=== PATIENT | female | born 1960 | race Caucasian/White ===

== ENCOUNTER → 2017-04-10 | Outpatient (CLI) | payer BC ==
--- NOTE | 2017-04-13 11:53 | MM ---
Reason for exam: screening (asymptomatic). Last mammogram was performed 1 year and 1 month ago. History: Patient is postmenopausal and has history of other cancer at age 46. Benign core biopsy of the left breast, October 07, 1995. Physical Findings: A clinical breast exam by your physician is recommended on an annual basis and results should be correlated with mammographic findings. MG Screening Mammo w CAD Bilateral CC and MLO view(s) were taken. Prior study comparison: March 03, 2016, bilateral MG screening mammo w CAD. March 02, 2015, bilateral MG screening mammo w CAD. There are scattered fibroglandular densities. There is a stable left retroareolar mass back to 2010. No suspicious abnormality. No significant changes when compared with prior studies. ASSESSMENT: Benign, BI-RAD 2 RECOMMENDATION: Routine screening mammogram of both breasts in 1 year.
== END | disposition home or self-care (01) ==
LOC: RADMAMWWP 15:21
PROVIDERS: ATTEND Internal Medicine Hematology & Oncology
DX: Z12.31 Encounter for screening mammogram for malignant neoplasm of breast (principal)
CPT/HCPCS: 77067

== ENCOUNTER 2018-04-11 19:46 | Emergency (ER) | payer BC ==
[2018-04-11] MEDS ORDERED: DIPH,PERTUS(ACELL)TETVAC-LF 0.5 ML VIAL IM ONE (19:58)
[2018-04-11 20:00] VITALS: RESP 16; TEMP 97.1
[2018-04-11] MEDS ORDERED: LIDOCAINE 1% INJ 10MG/ML (20 ML MDV) SQ STA (20:00)
--- NOTE | 2018-04-11 20:05 | ED ---
General Adult HPI - General Stated complaint: Thumb lac Source: RN notes reviewed, old records reviewed - History of Present Illness Initial comments: 49-year-old female patient past medical history of lymphoma, splenectomy presents to ED after sustaining a laceration to the base of her left thumb. Patient was cleaning a wine glass when it broke and cut her left thumb. Patient denies any notable pieces of glass in wound. Patient denies any other injuries. Patient does not know date of last tetanus. Patient has full range of motion of thumb. Systemic: Pt denies fatigue, myalgia, fever/chills, rash. Pt denies weakness, night sweats, weight loss. Neuro: Pt denies headache, visual disturbances, syncope or pre-syncope. HEENT: Pt denies ocular discharge or irritation, otalgia, rhinorrhea, pharyngitis or notable lymphadenopathy. Cardiopulmonary: Pt denies chest pain, SOB, heart palpitations, dyspnea on exertion. Abdominal/GI: Pt denies abdominal pain, n/v/d. : Pt denies dysuria, burning w/ urination, frequency/urgency. Denies new onset urinary or bowel incontinence. MSK: Pt denies myalgia, loss of strength or function in extremities. Neuro: Pt denies new onset weakness, paresthesias. - Related Data Home Medications Medication Instructions Recorded Confirmed Calcium Carbonate/Vitamin D3 2 tab PO DAILY 11/02/13 01/05/16 [Caltrate 600 + D Tablet] Cholecalciferol [Vitamin D3] 1,000 unit PO DAILY 11/02/13 01/05/16 Multivitamins, Thera [Multivitamin] 1 tab PO DAILY 11/02/13 01/05/16 Omeprazole [PriLOSEC] 40 mg PO DAILY 11/02/13 01/05/16 Vitamin A 8,000 unit PO DAILY 11/02/13 01/05/16 ALPRAZolam [Xanax] 0.25 mg PO DAILY PRN 01/18/14 01/05/16 Metoprolol Succinate 50 mg PO DAILY 01/18/14 01/05/16 Zinc 50 mg PO DAILY 02/15/14 01/05/16 Losartan-Hctz 50-12.5 mg [Hyzaar 1 each PO DAILY 01/05/16 01/05/16 50-12.5] Previous Rx's Medication Instructions Recorded Hydrocodone/Acetaminophen [[place] 1 - 2 each PO Q6HR PRN #60 tab 01/06/14 5-325] Cephalexin [Keflex] 500 mg PO Q12HR 3 Days #6 cap 04/11/18 Allergies Allergy/AdvReac Type Severity Reaction Status Date / Time codeine Allergy Wheezing Verified 04/11/18 19:56 Iodinated Contrast- Oral and Allergy Rash/Hives Verified 04/11/18 19:56 IV Dye [Iodinated Contrast Media - IV Dye] morphine Allergy Rash/Hives Verified 04/11/18 19:56 Review of Systems ROS Statement: Those systems with pertinent positive or pertinent negative responses have been documented in the HPI. ROS Other: All systems not noted in ROS Statement are negative. Past Medical History Past Medical History: Cancer, GERD/Reflux, Hypertension Additional Past Medical History / Comment(s): lymphoma 2006, INCISIONAL WOUND ABDOMEN, PACKED WITH SALINE DRESSING History of Any Multi-Drug Resistant Organisms: None Reported Past Surgical History: Bariatric Surgery, Breast Surgery, Section, Cholecystectomy, Hernia Repair, Tonsillectomy, Uterine Ablation Additional Past Surgical History / Comment(s): gastric sleeve 03/18/12, splenectomy 2006, RK on eyes, D&C, EGD, Lt breast biopsy,laparoscopy, panniculectomy 12/02/13, wound dehiscence s/p panniculectomy-debridement and sutures done 01/06/14 Past Anesthesia/Blood Transfusion Reactions: No Reported Reaction Additional Past Anesthesia/Blood Transfusion Reaction / Comment(s): STATES UNSURE IF HAD PONV WITH LAST SX Past Psychological History: No Psychological Hx Reported Smoking Status: Former smoker Past Alcohol Use History: Occasional Additional Past Alcohol Use History / Comment(s): glass of wine at night Past Drug Use History: None Reported - Past Family History Brother(s) Family Medical History: Cancer General Exam - General Exam Comments Initial Comments: Constitutional: NAD, AOX3, Pt has pleasant affect. HEENT: NC/AT, trachea midline, neck supple, no lymphadenopathy. Posterior pharynx non erythematous, without exudates. External ears appear normal, without discharge. Mucous membranes moist. Eyes PERRLA, EOM intact. There is no scleral icterus. No pallor noted. Cardiopulmonary: RRR, no murmurs, rubs or gallops, no JVD noted. Lungs CTAB in anterior and posterior garr[place]. No peripheral edema. Abdominal exam: Abdomen soft and non-distended. Abdomen non-tender to palpation in all 4 quadrants. Bowel sounds active in LLQ. No hepatosplenomegaly. No ecchymosis Neuro: CN II-XII grossly intact. No nuchal rigidity. MSK: Approximately 2cm laceration at dorsal aspect of MCP joint of 1st digit. Pt has full ROM of 1st digit of L hand, flexion/extension, abduction/adduction, rotation. Wound explored, no foreign body, ligamentous or osseus involvment. Pt neurovascularly intact after suture placement. No posterior calf tenderness bilaterally, homans sign negative bilaterally. Posterior tibialis and radial pulse +2 bilaterally. Sensation intact in upper and lower extremities. Full active ROM in upper and lower extremities, 5/5 stregnth. Course Vital Signs 04/11/18 04/11/18 19:56 20:51 Temperature 97.1 F L Pulse Rate 78 75 Respiratory 16 16 Rate Blood Pressure 167/101 147/87 O2 Sat by Pulse 94 L 96 Oximetry Medical Decision Making - Medical Decision Making 49-year-old female patient past medical history of lymphoma, splenectomy presents to ED after sustaining a laceration to the base of her left thumb. Patient was cleaning a wine glass when it broke and cut her left thumb. Patient denies any notable pieces of glass in wound. Patient denies any other injuries. Physical exam displayed: Approximately 2cm laceration at dorsal aspect of MCP joint of 1st digit. Pt has full ROM of 1st digit of L hand, flexion/extension, abduction/adduction, rotation. Wound explored, no foreign body, ligamentous or osseus involvment. Plain film did not display any foreign body. 4 simple interrupted sutures placed. Pt neurovascularly intact after suture placement. Pt rx 3 days of keflex for infection prophylaxis. Pt educated extensively about s/sx of infection. Pt to to return to ED if any s/sx of infection develop, any new symptoms or if condition worsens in anyway. Pt to return to ED in 7-10 days for suture removal. Pt to f/u with PCP in 1-2 days. Pt tetanus updated. Case discussed with Dr Cordoba. Disposition Clinical Impression: Laceration Disposition: HOME SELF-CARE Condition: Good Instructions: Care For Your Stitches (ED), Laceration (DC) Additional Instructions: Patient to adhere to previously discussed treatment plan and will take medication(s) as directed. Patient to follow up with PCP in 1-2 days. Patient to return to ED if symptoms do not improve. Prescriptions: Cephalexin [Keflex] 500 mg PO Q12HR 3 Days #6 cap Is patient prescribed a controlled substance at d/c from ED?: No Referrals: Daniel Campbell MD [Primary Care Provider] - 1-2 days Time of Disposition: 20:57
--- NOTE | 2018-04-11 20:29 | XR ---
EXAMINATION TYPE: XR hand complete LT DATE OF EXAM: 04/11/2018 COMPARISON: NONE HISTORY: Pain left thumb TECHNIQUE: 3 views FINDINGS: I see no fracture nor dislocation. Thumb appears intact. There is mild spurring at the firs t carpometacarpal joint. There are no erosions. IMPRESSION: No acute abnormality of the left hand. I see no sign of radiopaque foreign body.
[2018-04-11 20:52] VITALS: BP 147/87; PULSE 75
== END 2018-04-11 21:10 | disposition home or self-care (01) ==
LOC: EC 19:46
DX: S61.012A Laceration without foreign body of left thumb without damage to nail, initial encounter (principal); Z23 Encounter for immunization; K21.9 Gastro-esophageal reflux disease without esophagitis; I10 Essential (primary) hypertension; Z79.899 Other long term (current) drug therapy; Z88.5 Allergy status to narcotic agent; Z91.041 Radiographic dye allergy status; Z85.72 Personal history of non-Hodgkin lymphomas; Z87.891 Personal history of nicotine dependence; Z98.84 Bariatric surgery status; Z90.81 Acquired absence of spleen; W25.XXXA Contact with sharp glass, initial encounter; Y93.G1 Activity, food preparation and clean up
CPT/HCPCS: 73130; 90715; 99283; 90471; 12001; J2001

== ENCOUNTER → 2018-05-28 | Outpatient (CLI) | payer BC ==
--- NOTE | 2018-05-31 10:23 | MM ---
Reason for exam: screening (asymptomatic). Last mammogram was performed 1 year and 2 months ago. History: Patient is postmenopausal and has history of other cancer at age 46. Benign core biopsy of the left breast, October 07, 1995. Physical Findings: A clinical breast exam by your physician is recommended on an annual basis and results should be correlated with mammographic findings. MG Screening Mammo w CAD Bilateral CC and MLO view(s) were taken. Prior study comparison: April 10, 2017, bilateral MG screening mammo w CAD. March 03, 2016, bilateral MG screening mammo w CAD. There are scattered fibroglandular densities. There is no discrete abnormality. ASSESSMENT: Negative, BI-RAD 1 RECOMMENDATION: Routine screening mammogram of both breasts in 1 year.
== END | disposition home or self-care (01) ==
LOC: RADMAMWWP 12:31
PROVIDERS: ATTEND Internal Medicine Hematology & Oncology
DX: Z12.31 Encounter for screening mammogram for malignant neoplasm of breast (principal)
CPT/HCPCS: 77067

== ENCOUNTER → 2018-07-28 | Outpatient (CLI) | payer BC ==
--- NOTE | 2018-07-28 17:47 | CT ---
EXAMINATION TYPE: CT ChestAbdPelvis w con DATE OF EXAM: 07/28/2018 INDICATION: Lymphoma, Observe for mets COMPARISON: 02/05/2015 CT DLP: 2080.90 mGycm CONTRAST: Performed with Oral Contrast and with IV Contrast, patient injected with 100 ml mL of Isovue 300. TECHNIQUE: Axial images at 5 mm thick sections. Reconstructed images in the coronal plane. Delayed images through the kidneys. FINDINGS: CT CHEST: Portion of the thyroid visualized is normal. There is a 0.4 cm nodule within the right middle lobe. This was present previously. Series 4 image 29 . A subtle peripheral densities within the lingula measuring 0.4 cm. Series 4 image 33. This was pres ent previously. A pleural-based nodule is in the right middle lobe measuring 0.6 cm. Series 4 image 33. This is sligh tly larger than the comparison. No enlarged mediastinal or hilar adenopathy is evident. The ascending aorta diameter at the level of the main pulmonary artery is 3.3 cm. The main pulmonary artery diameter at the bifurcation is 2.[address] ABDOMEN: Lymphadenopathy: A few shoddy lymph nodes are in the periaortic region. No enlarged lymph adenopathy is evident. Portal region appears normal. No enlarged hilar adenopathy is evident. There i s a 1.2 cm lymph node within the pretracheal space. This was present previously and appears stable no suspicious axillary adenopathy is evident. Small left inguinal lymph node measuring 0.7 cm is presen t. Liver: There is moderate fatty infiltration liver. Spleen: Surgically absent Pancreas: Normal Adrenal glands: The adrenal glands are normal. Gallbladder: Surgically absent. Kidneys: No masses are evident. No hydronephrosis is present. No cysts are present. Delayed images were obtained through the kidneys, which remain unremarkable. Aorta: Vascular calcification is within the aorta. Inferior vena cava: Normal. CT PELVIS: Loops of bowel within the abdomen and pelvis are normal. There are loops of bowel which are incom pletely distended or lack oral contrast limiting their evaluation. Appendix: Not visualized. No dilated tubular structure inflammatory changes are evident. Urinary bladder: Normal. Genitourinary structures: Uterus and adnexal regions appear within normal limits. Osseous structures: No suspicious lytic or sclerotic lesions. There is a small sclerotic lesion along the left ischio. Series 7 image 64. Degenerative disc changes are within the lower thoracic spine. IMPRESSIONS: 1. No suspicious change in adenopathy is present. There is a stable 1.2 cm pretracheal lymph node. Ad ditional lymphadenopathy is small and not enlarged by CT criteria. 2. Moderate fatty infiltration to the liver.
== END | disposition home or self-care (01) ==
LOC: RADCTMAIN 11:48
PROVIDERS: ATTEND Internal Medicine Hematology & Oncology
DX: C83.80 Other non-follicular lymphoma, unspecified site (principal); K76.0 Fatty (change of) liver, not elsewhere classified
CPT/HCPCS: 71260; 74177; Q9967

== ENCOUNTER → 2019-05-10 | Outpatient (CLI) | payer BC ==
[2019-05-10 12:38] LABS: HCT 46.4 % (34.0-46.0); HGB 14.9 gm/dL (11.4-16.0); MCH 29.1 pg (25.0-35.0); MCHC 32.2 g/dL (31.0-37.0); MCV 90.3 fL (80.0-100.0); Mean Platelet Volume 7.6; Platelet Count 440 k/uL (150-450); RBC 5.14 m/uL (3.80-5.40); RDW 13.6 % (11.5-15.5); WBC 12.5 k/uL (3.8-10.6)
[2019-05-10 12:43] LABS: Partial Thromboplastin Time 23.8 sec (22.0-30.0); Prothrombin Time 9.9 sec (9.0-12.0)
[2019-05-10 18:54] LABS: Ferritin 230.9 ng/mL (10.0-291.0)
[2019-05-10 19:21] LABS: % Iron Saturation 18.71 (12.00-45.00); African American GFR (CKD) 115.6 (60.0-200.0); Albumin 4.6 g/dL (3.80-4.90); Anion Gap 8.8 mmol/L (4.00-12.00); Carbon Dioxide 33.2 mmol/L (21.6-31.8); Chol/HDL Ratio 2.95; Folate, Serum 22.2 ng/mL; Globulin 2.3 g/dL (1.6-3.3); LDL Cholesterol,Calculated 96.6 mg/dL (0.0-131.0); Magnesium 2.3 mg/dL (1.5-2.4); Non-African American GFR(CKD) 99.8 (60.0-200.0); Phosphorus 3.4 mg/dL (2.4-5.1); Potassium 4.3 mmol/L (3.5-5.5); Total Bilirubin 0.3 mg/dL (0.3-1.2); Total Protein 6.9 g/dL (6.2-8.2); VLDL Calculation 26.4 mg/dL (5.00-40.00)
[2019-05-10 21:09] LABS: Hemoglobin A1C 6.7 % (4.0-6.0)
[2019-05-11 14:37] LABS: Zinc, Serum 120 ug/dL (60-130)
[2019-05-12 07:15] LABS: Vitamin A 44 ug/dL (38-106)
[2019-05-12 08:21] LABS: Vit B1(Thiamine) 99 ug/L (38-122)
== END | disposition home or self-care (01) ==
LOC: LABWHC1 11:36
PROVIDERS: ATTEND Surgery Plastic and Reconstructive Surgery
DX: E21.1 Secondary hyperparathyroidism, not elsewhere classified (principal); E89.1 Postprocedural hypoinsulinemia; D50.8 Other iron deficiency anemias; K90.89 Other intestinal malabsorption; E44.0 Moderate protein-calorie malnutrition; E55.9 Vitamin D deficiency, unspecified; K74.1 Hepatic sclerosis; N19 Unspecified kidney failure; K50.90 Crohn's disease, unspecified, without complications; E66.01 Morbid (severe) obesity due to excess calories; Z51.81 Encounter for therapeutic drug level monitoring
CPT/HCPCS: 36415; 80053; 80061; 82306; 82525; 82607; 82728; 82746; 83036; 83540; 83550; 83735; 83970; 84100; 84134; 84255; 84425; 84443; 84590; 84630; 85027; 85610; 85730

== ENCOUNTER → 2019-05-30 | Outpatient (CLI) | payer BC ==
--- NOTE | 2019-05-31 10:12 | MM ---
Reason for exam: screening (asymptomatic). Last mammogram was performed 1 year ago. History: Patient is postmenopausal and has history of other cancer at age 46. Benign core biopsy of the left breast, October 07, 1995. Physical Findings: A clinical breast exam by your physician is recommended on an annual basis and results should be correlated with mammographic findings. MG Screening Mammo w CAD Bilateral CC and MLO view(s) were taken. Prior study comparison: May 28, 2018, bilateral MG screening mammo w CAD. April 10, 2017, bilateral MG screening mammo w CAD. There are scattered fibroglandular densities. No suspicious abnormality. No significant changes when compared with prior studies. ASSESSMENT: Negative, BI-RAD 1 RECOMMENDATION: Routine screening mammogram of both breasts in 1 year.
== END | disposition home or self-care (01) ==
LOC: RADMAMWWP 09:19
PROVIDERS: ATTEND Internal Medicine Hematology & Oncology
DX: Z12.31 Encounter for screening mammogram for malignant neoplasm of breast (principal)
CPT/HCPCS: 77067

== ENCOUNTER → 2020-06-04 | Outpatient (CLI) | payer BC ==
--- NOTE | 2020-06-05 11:10 | MM ---
Reason for exam: screening (asymptomatic). Last mammogram was performed 1 year ago. History: Patient is postmenopausal and has history of other cancer at age 46. Benign core biopsy of the left breast, October 07, 1995. Physical Findings: A clinical breast exam by your physician is recommended on an annual basis and results should be correlated with mammographic findings. MG Screening Mammo w CAD Bilateral CC and MLO view(s) were taken. Prior study comparison: May 30, 2019, bilateral MG screening mammo w CAD. May 28, 2018, bilateral MG screening mammo w CAD. No significant changes when compared with prior studies. ASSESSMENT: Negative, BI-RAD 1 RECOMMENDATION: Routine screening mammogram of both breasts in 1 year.
== END ==
LOC: RADMAMWWP 09:49
PROVIDERS: ATTEND Internal Medicine Hematology & Oncology
DX: Z12.31 Encounter for screening mammogram for malignant neoplasm of breast (principal); Z78.0 Asymptomatic menopausal state
CPT/HCPCS: 77067

== ENCOUNTER → 2021-03-11 | Outpatient (CLI) | payer BC ==
[2021-03-11 15:22] LABS: African American GFR (CKD) >90 (>60 ml/min/1.73 sqM); Blood Urea Nitrogen 20 mg/dL (7-17); Non-African American GFR(CKD) >90 (>60 ml/min/1.73 sqM)
--- NOTE | 2021-03-12 09:16 | CT ---
EXAMINATION TYPE: CT ChestAbdPelvis w con DATE OF EXAM: 03/11/2021 COMPARISON: Most recent CT July 28, 2018 and older studies. HISTORY: Observe for mets, hx non-hodgkins lymphoma. PT having increased dyspnea, SOB. CT DLP: 2319.40 mGycm. Automated Exposure Control for Dose Reduction was Utilized. CONTRAST: CT scan of the thorax, abdomen and pelvis is performed with oral and with IV Contrast, patient inject ed with 100 mL of Isovue 300. FINDINGS: LUNGS: Stable 6 x 4 mm subpleural nodule right middle lobe on axial image 32 is grossly unchanged fro m prior studies. Smaller 3 mm nodule superior to this axial image 28 is grossly stable. No new great er than 5 mm pulmonary nodules bilaterally. There is no pleural effusion or pneumothorax seen. The tracheobronchial tree is patent. MEDIASTINUM: There are no new greater than 1 cm hilar or mediastinal lymph nodes. Prominent but subce ntimeter paracarinal lymph node on axial image 20 and right hilar lymph node axial image 28 are both unchanged from prior studies. No cardiomegaly or pericardial effusion is seen. OTHER: No suspicious new greater than 1 cm axillary adenopathy is seen. LIVER/GB: Cholecystectomy clips are redemonstrated. Liver is diffusely low dense consistent with fat ty infiltration PANCREAS: No significant abnormality is seen. SPLEEN: Spleen is nonvisualized redemonstrated surgically absent. ADRENALS: No significant abnormality is seen. KIDNEYS: No significant abnormality is seen. BOWEL: No suspicious small or large bowel dilatation is seen. There is redemonstration of surgical changes from gastric sleeve procedure. Oral contrast reaches the sigmoid colon level on current stud y. GENITAL ORGANS: Anteverted uterus redemonstrated. Slight fundal prominence raising concern for underl celi fibroids again seen. LYMPH NODES: No new greater than 1cm abdominal or pelvic lymph nodes are appreciated. Stable prominen t but subcentimeter bilateral groin lymph nodes. OSSEOUS STRUCTURES: Disc space narrowing with sclerosis at T11-T12 level is redemonstrated. OTHER: Mesh type material overlying the ventral wall with linear density is redemonstrated in the mid line of the upper abdomen. No recurrent hernia defect is evident in the mesh. IMPRESSION: No new mass or adenopathy is seen to suggest neoplastic recurrence. No new suspicious ac [place] findings identified.
== END | disposition home or self-care (01) ==
LOC: RADCTMAIN 14:31
PROVIDERS: ATTEND Internal Medicine Hematology & Oncology
DX: C83.80 Other non-follicular lymphoma, unspecified site (principal); R06.00 Dyspnea, unspecified; R06.02 Shortness of breath
CPT/HCPCS: 82565; 84520; 71260; 74177; 36415; Q9967

== ENCOUNTER → 2021-06-05 | Outpatient (CLI) | payer BC ==
--- NOTE | 2021-06-06 10:51 | MM ---
Reason for exam: screening (asymptomatic). Last mammogram was performed 1 year ago. History: Patient is postmenopausal and has history of other cancer at age 46. Benign core biopsy of the left breast, October 07, 1995. Physical Findings: A clinical breast exam by your physician is recommended on an annual basis and results should be correlated with mammographic findings. MG 3D Screening Mammo W/Cad Bilateral CC and MLO view(s) were taken. Prior study comparison: June 04, 2020, bilateral MG screening mammo w CAD. May 30, 2019, bilateral MG screening mammo w CAD. There are scattered fibroglandular densities. There is no discrete abnormality. No significant changes when compared with prior studies. ASSESSMENT: Negative, BI-RAD 1 RECOMMENDATION: Routine screening mammogram of both breasts in 1 year.
== END | disposition home or self-care (01) ==
LOC: RADMAMWWP 12:40
PROVIDERS: ATTEND Internal Medicine Hematology & Oncology
DX: Z12.31 Encounter for screening mammogram for malignant neoplasm of breast (principal); Z78.0 Asymptomatic menopausal state
CPT/HCPCS: 77063; 77067

== ENCOUNTER → 2021-10-01 | Outpatient (CLI) | payer OTHER ==
[2021-10-01 15:40] LABS: ALT 103 U/L (8-44); AST 80 U/L (13-35); African American GFR (CKD) 111.7 (60.0-200.0); Albumin 4.2 g/dL (3.8-4.9); Albumin/Globulin Ratio 1.43 (1.60-3.17); Alkaline Phosphatase 130 U/L (41-126); BUN/Creat Ratio 26.72 Ratio (12.00-20.00); Blood Urea Nitrogen 16.7 mg/dL (9.0-27.0); Calcium 10.5 mg/dL (8.7-10.3); Carbon Dioxide 30.5 mmol/L (20.0-27.5); Chloride 98 mmol/L (96-109); Chol/HDL Ratio 3.79 Ratio; Globulin 2.9 g/dL (1.6-3.3); Glucose 189 mg/dL (70-110); LDL Cholesterol,Calculated 113.7 mg/dL (0.0-131.0); Non-African American GFR(CKD) 96.4 (60.0-200.0); Potassium 4.4 mmol/L (3.5-5.5); Sodium 142 mmol/L (135-145); Total Protein 7.1 g/dL (6.2-8.2)
[2021-10-01 18:51] LABS: Microalbumin Creatinine Ratio <30 mg/g Creat (0-30)
== END | disposition home or self-care (01) ==
LOC: LABWHC1 10:32
PROVIDERS: ATTEND Nurse Practitioner
DX: E11.9 Type 2 diabetes mellitus without complications (principal)
CPT/HCPCS: 36415; 80053; 80061; 82043; 82570; 83036

== ENCOUNTER → 2022-02-26 | Outpatient (CLI) | payer OTHER ==
[2022-02-26 16:09] LABS: ALT 92 U/L (8-44); AST 87 U/L (13-35); African American GFR (CKD) 110.3 (60.0-200.0); Albumin 4.1 g/dL (3.8-4.9); Alkaline Phosphatase 137 U/L (41-126); BUN/Creat Ratio 21.73 Ratio (12.00-20.00); Blood Urea Nitrogen 14.1 mg/dL (9.0-27.0); Calcium 10.9 mg/dL (8.7-10.3); Carbon Dioxide 30.8 mmol/L (20.0-27.5); Chloride 96 mmol/L (96-109); Chol/HDL Ratio 3.44 Ratio; Globulin 3.7 g/dL (1.6-3.3); Glucose 161 mg/dL (70-110); LDL Cholesterol,Calculated 110.8 mg/dL (0.0-131.0); Non-African American GFR(CKD) 95.2 (60.0-200.0); Potassium 4.3 mmol/L (3.5-5.5); Sodium 139 mmol/L (135-145); Total Protein 7.8 g/dL (6.2-8.2)
== END | disposition home or self-care (01) ==
LOC: LABWHC1 09:38
PROVIDERS: ATTEND Nurse Practitioner
DX: I10 Essential (primary) hypertension (principal); E11.9 Type 2 diabetes mellitus without complications
CPT/HCPCS: 36415; 80053; 80061; 82043; 82570; 82607; 83036

== ENCOUNTER → 2022-06-30 | Outpatient (CLI) | payer OTHER ==
--- NOTE | 2022-06-30 12:10 | XR ---
EXAMINATION TYPE: XR hand complete bilateral DATE OF EXAM: 06/30/2022 CLINICAL HISTORY: Rheumatoid arthritis. Bilateral hand pain. TECHNIQUE: Frontal, lateral and oblique images of the bilateral hands are obtained. COMPARISON: Left hand x-ray April 11, 2018. FINDINGS: There is no acute fracture or dislocation in either hand. There is mild to moderate narrowi ng and mild spurring throughout the PIP and DIP joints of the phalanges. There is relative sparing of the MCP joints. Right fifth finger shows more moderate to severe narrowing with incomplete expansion . There is moderate to severe narrowing and spurring at the base of the first metacarpal bilaterally, left greater than right, seen on current study with some interval progression from 2019 left hand ra diographs. Incomplete extension of the left fifth finger is also redemonstrated. Mild to moderate sof t tissue swelling of the PIP joints more prominent in the right hand versus the left hand is noted. IMPRESSION: As above. Relative sparing of the MCP joints with argue against a inflammatory etiology s uch as rheumatoid arthritis.
--- NOTE | 2022-06-30 12:15 | XR ---
EXAMINATION TYPE: XR cervical spine comp DATE OF EXAM: 06/30/2022 TECHNIQUE: Frontal, oblique, swimmers, and open mouth view of the cervical spine are obtained. HISTORY: [id number], [id number], [id number] neck pain. COMPARISON: None FINDINGS: The cervical spine is visualized in its entirety from C1 thru the top of T1 level, it is s atisfactory in alignment without evidence of acute fracture or dislocation. The pre-vertebral soft t issue appears within normal limits. The C1-C2 articulation is within normal limits on the open mouth view. Vertebral body heights and disc space heights are maintained. There are multilevel uncoverteb ral facet degenerative changes contributing to multilevel neural foraminal narrowing greater on the r ight. Overlying soft tissue is unremarkable. IMPRESSION: As above. Consider MRI follow-up which is more sensitive.
[2022-06-30 19:31] LABS: ALT 117 U/L (8-44); AST 100 U/L (13-35); African American GFR (CKD) 107.6 (60.0-200.0); Albumin 4.4 g/dL (3.8-4.9); Albumin/Globulin Ratio 1.22 (1.60-3.17); Alkaline Phosphatase 155 U/L (41-126); BUN/Creat Ratio 22.57 Ratio (12.00-20.00); Blood Urea Nitrogen 15.8 mg/dL (9.0-27.0); Calcium 11.2 mg/dL (8.7-10.3); Carbon Dioxide 28.5 mmol/L (20.0-27.5); Chloride 93 mmol/L (96-109); Chol/HDL Ratio 3.67 Ratio; Globulin 3.6 g/dL (1.6-3.3); Glucose 203 mg/dL (70-110); LDL Cholesterol,Calculated 121.3 mg/dL (0.0-131.0); Non-African American GFR(CKD) 92.9 (60.0-200.0); Potassium 4.1 mmol/L (3.5-5.5); Rheumatoid Factor, Qnt <10 IU/mL (0-15); Sodium 136 mmol/L (135-145)
[2022-06-30 20:44] LABS: Microalbumin Creatinine Ratio <30 mg/g Creat (0-30)
== END | disposition home or self-care (01) ==
LOC: LABWHC1 11:12
PROVIDERS: ATTEND Nurse Practitioner
DX: I10 Essential (primary) hypertension (principal); E11.9 Type 2 diabetes mellitus without complications; Z82.61 Family history of arthritis; M79.641 Pain in right hand; M79.642 Pain in left hand
CPT/HCPCS: 36415; 72050; 80053; 80061; 82043; 82570; 82607; 83036; 86038; 86431

== ENCOUNTER 2022-07-15 08:07 | Day surgery (SDC) | payer OTHER ==
[2022-07-14 11:09] VITALS: BMI 35.2
[~2022-07-15 08:07] MED LIST: LACTATED RINGERS 1,000 ML IV SCH; LIDOCAINE 1% (10MG/ML) FOR IV START INTRADERMA PRN
[2022-07-15] MEDS ORDERED: LACTATED RINGERS 1,000 ML IV ONE ×2 (08:45→09:28)
[2022-07-15 08:49] VITALS: TEMP 97.1
[2022-07-15 08:54] LABS: Glucose,Whole Blood 139 mg/dL (70-110)
[2022-07-15] MEDS ORDERED: PROPOFOL 10 MG/ML 20 ML VIAL IV ONE (09:06)
--- NOTE | 2022-07-15 09:26 | P.PCN ---
Date of Procedure: 07/15/22 Procedure(s) Performed: BRIEF HISTORY: Patient is a 61-year-old pleasant white female scheduled for an elective colonoscopy as a part of evaluation of chronic diarrhea for the last 2 years duration. PROCEDURE PERFORMED: Colonoscopy with random biopsy. PREOPERATIVE DIAGNOSIS: Chronic diarrhea of 2 years duration. IV sedation per Anesthesia. PROCEDURE: After informed consent was obtained, the patient, was brought into the endoscopy unit. IV sedation was administered by Anesthesia under continuous monitoring. Digital rectal examination was normal. Initially the Olympus CF-160 flexible video colonoscope was then inserted in the rectum, gradually advanced into the cecum without any difficulty. Careful examination was performed as the scope was gradually being withdrawn. Ileocecal valve and the appendiceal orifice were visualized and appeared normal. Prep was excellent. Mucosa of the cecum, a scending colon, transverse colon, descending colon, sigmoid colon, and rectum appeared normal. Biopsies were done from ascending and descending colon to rule out microscopic/collagenous colitis. Retroflexion was performed in the rectum and no lesions were seen. The patient tolerated the procedure well. IMPRESSION: Normal-appearing colon from rectum to cecum with no evidence of colitis or colorectal neoplasia . RECOMMENDATIONS: Findings of this examination were discussed with the patient as well as a family. She was advised to follow with the biopsy results and use [id number] Imodium as needed for the chronic diarrhea. Recommend to have a repeat screening colonoscopy in 10 years..
[2022-07-15 09:44] VITALS: BP 136/90; PULSE 75; RESP 17
== END 2022-07-15 10:05 | disposition home or self-care (01) ==
LOC: ORWHC2ENDO 08:07
PROVIDERS: ATTEND Internal Medicine Gastroenterology
DX: K63.89 Other specified diseases of intestine (principal); K52.9 Noninfective gastroenteritis and colitis, unspecified; I10 Essential (primary) hypertension; J45.909 Unspecified asthma, uncomplicated; E11.9 Type 2 diabetes mellitus without complications; Z88.5 Allergy status to narcotic agent; Z91.041 Radiographic dye allergy status; Z79.84 Long term (current) use of oral hypoglycemic drugs; Z79.899 Other long term (current) drug therapy; Z85.79 Personal history of other malignant neoplasms of lymphoid, hematopoietic and related tissues
CPT/HCPCS: 88305; 45380; J2704

== ENCOUNTER → 2022-07-23 | Outpatient (CLI) | payer OTHER ==
--- NOTE | 2022-07-23 23:15 | MR ---
EXAMINATION TYPE: MR cervical spine wo con DATE OF EXAM: 07/23/2022 INDICATION: Patient age:Female; 61 years old; Reason for study: R93.7, M48.02. Neck pain COMPARISON: Radiograph 06/30/2022. TECHNIQUE: Multi planar, multi sequence imaging was performed utilizing: T1-weighted, T2-weighted, an d turbo inversion recovery imaging of the cervical spine. IV Contrast: none FINDINGS: Alignment: The cervical vertebral bodies have preserved heights. Alignment is within normal limits gi marilin patient positioning. Bones: Scattered degeneration changes throughout the spine are mild. Mild osteophyte formation is pre sent. Cord: The spinal cord is unremarkable with regards to their signal intensity and morphology. Discs: Multilevel disc desiccation is present. C2-C3: A disc eccentric right osteophyte complex is present which minimally narrows the ventral subar achnoid space. Bilateral facet and uncovertebral joint arthropathy are present with moderate right and mild left neural foraminal stenosis. C3-C4: No significant disc pathology. The spinal canal is patent. Bilateral facet and uncovertebral joint arthropathy are present with moderate right and mild left neural foraminal stenosis. C4-C5: No significant disc pathology. The spinal canal is patent. Bilateral facet and uncovertebral joint arthropathy are present with moderate bilateral neural foraminal stenosis. C5-C6: A disc osteophyte complex is present with mild spinal canal stenosis. Bilateral facet and unc overtebral joint arthropathy are present with moderate bilateral neural foraminal stenosis. C6-C7: No significant disc pathology. The spinal canal is patent. No neural foraminal stenosis. C7-T1: No significant disc pathology. The spinal canal is patent. No neural foraminal stenosis. IMPRESSION: 1. No evidence for disc herniation or significant spinal canal stenosis. 2. Multilevel disc degeneration with associated osteoarthritic changes with multilevel moderate neura l foraminal stenosis throughout the spine as described above.
== END | disposition home or self-care (01) ==
LOC: RADMRIMAIN 12:09
PROVIDERS: ATTEND Nurse Practitioner
DX: M50.122 Cervical disc disorder at C5-C6 level with radiculopathy (principal); M47.22 Other spondylosis with radiculopathy, cervical region; M48.02 Spinal stenosis, cervical region; M99.72 Connective tissue and disc stenosis of intervertebral foramina of thoracic region; R93.7 Abnormal findings on diagnostic imaging of other parts of musculoskeletal system
CPT/HCPCS: 72141

== ENCOUNTER → 2022-08-18 | Outpatient (CLI) | payer OTHER ==
[2022-08-18 11:25] VITALS: BP 134/84; PULSE 95; RESP 18; TEMP 97.7
--- NOTE | 2022-08-18 13:33 | P.PAINPG ---
PQRS Measure Charge Sheet Comment: HISTORY OF PRESENT ILLNESS: 62 yr old female w at side as a referral from Dr Lynn presents today w severe and chronic neck pain secondary to DDD, occipital neuralgia and cervicogenic CAROLINA for evaluation. Pt states pain level is provoked at 6 /10 in intensity, constant, localized in the upper neck, achy in character w shooting pain towards the head. Pain is provoked by hyperextension, flexion. Pain is alleviated by PT x 3 wks which she is currently in, chiropractic treatment x 1 session in Apr 2022, heat, ice, topical, use of a TENS unit, repositioning and rest. PMH: Lymphoma (2006), GERD, HTN PSH: Gastric Sleeve (2011), L Breast Biopsy, Section, Cholecystectomy, Splenectomy (2006), Hernia Repair, Tonsillectomy, Uterine Ablation, RK on Eyes, D &C, Panniculectomy w Debridement (2013) SH: Glass of wine nightly, Former tobacco user, No illicit drug use FH: Bro- [place] All: See list Meds: See list REVIEW OF ORGAN SYSTEMS: CONSTITUTIONAL: No fevers or chills. No recent weight loss. NEUROLOGICAL: + numbness and tingling along the distal extremities. No seizure disorders or headaches. MUSCULOSKELETAL: + pain PSYCHIATRIC: Denies current depression or suicidal thoughts. Physical Examinations : Constitutional : Cooperative , not in acute distress . Neurologic : Cranial nerve II to XII intact. No focal neurological deficits. Psychiatric : alert & oriented x 3. Matching mood & appropriate affect. Judgment & insight intact. Musculoskeletal : Cervical Spine +BL ABDIRASHID TTP Motor strength in the deltoid and biceps: Normal right side. Normal Left side Motor strength biceps and the wrist extensors: Normal right side . Normal left side Motor strength in the triceps muscle: Normal right side. Normal left side Deep tendon reflexes: Normal at the biceps. Normal at Brachioradialis. Normal at triceps Vertebral body tenderness to deep palpation over Cervical facet loading test: positive bilaterally Spurling test: positive bilaterally Neck distraction test: positive bilaterally Gonzales sign: positive bilaterally Lumbar spine Motor strength lower extremities ,thigh and legs 5/5 Right side , 5/5 Left side Deep tendon reflexes : Normal Knee Jerk. Normal Ankle Jerk Vertebral body tenderness over Lumbar facet Loading Test: positive Right / positive Left Range of motion of the lumbar spine Flexion 30 degrees, extension 10 degrees Straight Leg Raise test: Left/ Right positive at degree Suman test: positive right / positive left. Severe tenderness over the Sacroiliac joint on the Right / Left sides Gaenslen test: positive bilaterally Seated flexion test: positive bilaterally. Sacral spine : Severe tenderness over the Sacroiliac joint: right side / left side Range of motion: Flexion of the lumbar spine <60 degrees Range of motion: Extension of the lumbar spine <20 degrees Gaenslen's Test positive Pancho's Test positive Suman test: positive right side / left side Thigh Thrust Test Sacral Thrust Test Imaging: MRI non contrast of the cervical spine from 07/23/22 reviewed Assessment/ Plan : Occipital Neuralgia, Cervicogenic [place] Recommendation of BL ABDIRASHID Injections. May need a series for optimal pain relief. Risks, benefits of procedure discussed and patient verbalized understanding. Admits to aspirin or anti- coagulant use or medical history of diabetes. Protocol for discontinuation/ continuation of medications jaiden procedure discussed. All questions answered. I have spent greater than 30 minutes on patient care today. Dr Dos Santos was available by phone for the evaluation of this patient. The time was used to review the medical records including relevant urine studies and Prescription history (MAPs), review of the available imaging, evaluation and examination of the patient, coordination of care with the medical staff and if applicable referring physicians, as well as creation of the medical record - Pain Location Bilateral Lower Neck Non-Pharmacological Interventions: Chiropractic Treatment, Heat, Ice, Physical Therapy, TENS Unit Pharmacological Interventions: Topical Medication PQRS Narrative: Smoking Status Former smoker Home Medications: Ambulatory Orders Cholecalciferol [Vitamin D3] 1,000 unit PO DAILY 11/02/13 Multivitamins, Thera [Multivitamin] 1 tab PO DAILY 11/02/13 Omeprazole [PriLOSEC] 40 mg PO DAILY 11/02/13 Vitamin A 8,000 unit PO DAILY 11/02/13 Zinc 50 mg PO DAILY 02/15/14 Escitalopram [Lexapro] 10 mg PO DAILY 07/14/22 L.acidoph,Paracasei, B.lactis [Probiotic] 1 each PO DAILY 07/14/22 Losartan Potassium [Cozaar] 100 mg PO DAILY 07/14/22 Metoprolol Tartrate [Lopressor] 50 mg PO DAILY 07/14/22 Tirzepatide [Mounjaro] 2.5 mg SQ Q7D 07/14/22 hydroCHLOROthiazide 25 mg PO DAILY 07/14/22 metFORMIN HCL 750 mg PO BID 07/14/22 Controlled Substance Measures - Controlled Substance Measures Is patient prescribed a controlled substance at discharge?: No
== END ==
LOC: PNWHC3 09:11
PROVIDERS: ATTEND Specialist
DX: M50.30 Other cervical disc degeneration, unspecified cervical region (principal); R93.7 Abnormal findings on diagnostic imaging of other parts of musculoskeletal system; G44.86 Cervicogenic headache; M54.81 Occipital neuralgia; K21.9 Gastro-esophageal reflux disease without esophagitis; I10 Essential (primary) hypertension; Z88.5 Allergy status to narcotic agent; Z91.041 Radiographic dye allergy status; Z87.891 Personal history of nicotine dependence
CPT/HCPCS: 99211

== ENCOUNTER 2022-09-09 06:21 | Day surgery (SDC) | payer OTHER ==
[2022-09-05 15:28] VITALS: BMI 34.3
[2022-09-09] MEDS ORDERED: LIDOCAINE 1% (10MG/ML) FOR IV START INTRADERMA PRN (06:37)
[2022-09-09 06:43] VITALS: RESP 16; TEMP 97.1
[2022-09-09] MEDS ORDERED: LACTATED RINGERS 1,000 ML IV SCH (06:45)
[2022-09-09 06:48] LABS: Glucose,Whole Blood 131 mg/dL (70-110)
[2022-09-09] MEDS ORDERED: methylPREDNISolone ACETATE 40 MG/ML 1 ML VIAL ONE (07:23)
[2022-09-09] MEDS ORDERED: fentaNYL (PF) 50 MCG/ML 2 ML AMP ONE (07:23)
[2022-09-09] MEDS ORDERED: ROPIVACAINE 5 MG/ML 20 ML AMPULE ONE (07:23)
[2022-09-09] MEDS ORDERED: MIDAZOLAM 2 MG/2 ML VIAL ONE (07:23)
--- NOTE | 2022-09-09 07:31 | P.PCN ---
Date of Procedure: 09/09/22 Procedure(s) Performed: Preoperative diagnoses= 1- Greater occipital neuralgia. 2-cervical degenerative disc disease. 3-cervical spondylosis with cervical facet arthropathy Postoperative diagnoses= 1-greater occipital neuralgia. 2-cervical degenerative disc disease. 3-cervical spondylosis with cervical facet arthropathy Procedure= Bilateral Greater occipital nerve block. Anesthesia= moderate sedation with Versed 1 mg and fentanyl 50 micrograms Sedation start time : 722 . Sedation end time : 726 . Estimated blood loss=minimal. Procedure indication= the patient had a history of severe chronic neck pain ,and headache, diagnosed with occipital neuralgia exam was positive for severe tenderness over the occipital nerve bilaterally, she will be a good candidate occipital nerve block, patient failed conservative management Procedure description= the patient was seen and identified in the preoperative holding area, risks and benefits and alternative of the procedure and possible complications discussed with the patient, and he agreed with the preceding, patient signed the consent, an IV was started, and vital signs were monitored and were stable throughout the procedure, patient was placed in the sitting position or table and the neck area was prepped and draped with a sterile fashion, vital signs were closely monitored during the procedure, 25-gauge needle advanced 1 inch lateral to the occipital protuberance on the right side, at the location of the right occipital nerve , then after negative aspiration for heme and CSF and there was no paresthesia during the injection, 6 ml of Robivacaine 0.5% and 20 mg of Depo-Medrol injected after negative aspiration, the needle removed, and the entire same procedure was repeated for the left Greater occipital nerve. Patient tolerated the procedure well without any complication, The patient returned to supine position after the back was cleaned and a Band- Aid applied, the patient transported to recovery room in stable condition and he was monitored for 30 minutes before he was discharged home and then patient was reexamined before going home and patient was discharged in stable condition and patient will follow up with the pain clinic in a few weeks.
[2022-09-09 07:39] VITALS: PULSE 74
[2022-09-09 07:56] VITALS: BP 114/77
== END 2022-09-09 07:56 | disposition home or self-care (01) ==
LOC: ORPAIN 06:21
PROVIDERS: ATTEND Specialist
DX: M54.81 Occipital neuralgia (principal); M50.30 Other cervical disc degeneration, unspecified cervical region; M47.812 Spondylosis without myelopathy or radiculopathy, cervical region
CPT/HCPCS: 64405; J2250; J1030; J3010; J2795

== ENCOUNTER → 2022-09-29 | Outpatient (CLI) | payer OTHER ==
[2022-09-29 09:09] VITALS: BP 130/64; PULSE 81; RESP 18; TEMP 97.9
--- NOTE | 2022-09-29 14:20 | P.PAINPG ---
PQRS Measure Charge Sheet Comment: A 62 yr old female with a history of severe and chronic neck pain secondary to cervical DDD and spondylosis with facet arthropathy without myelopathy presents today for evaluation s/p BL ABDIRASHID injection. Pt states she experienced 90 % pain relief x 1 1/2 wks s/p procedure. Pain level is provoked at 6 /10 in intensity, constant, localized in the upper cervical spine, sharp in character w shooting towards the top of head, R> L. Pain is provoked by hyperextension. Pain is alleviated with PT x 6-8 wks in August 2022, chiropractic treatment x 1 time, heat > ice, medications, topical, repositioning and rest. Interventional pain procedures completed include BL ABDIRASHID injection Patient is currently on Ibu, Icy Hot Patient denies any side effects of the medication(s), denies excessive drowsiness or sleepiness, denies suicidal ideation and reports that the current pain medication is helping to control the pain and improve activities of daily living. Patient denies any motor or sensory deficits. Patient denies any fever or night sweats, denies any change in the bowel movements or urination. Physical Examination: -Constitutional: Cooperative. Not in acute distress . - Neurologic: Cranial nerve II to XII intact. No focal neurological deficits. - Psychatric: Alert & oriented x 3. Matching mood & appropriate affect. Judgment and insight intact. - Musculoskeletal: Cervical spine: Muscle bulk/ tone/ strength in the bilateral upper extremities normal Vertebral body tenderness to palpation over C6 Spurling test positive Distraction test positive over C6, C7 Facet loading test positive TTP Thoracic spine Muscle bulk / tone/ strength in the bilateral paraspinal muscles normal Vertebral body tender to palpation over Facet loading test positive TTP Lumbar spine: Motor bulk/ tone/ strength lower extremities , thigh and legs : 5/5 Deep tendon reflexes : Normal Knee Jerk. Normal Ankle Jerk . Vertebral body tenderness to palpation over Lumbar Facet Loading Test positive Straight Leg Raise: positive at 30 degrees right side/ left side Gaenslen's Test positive Sacral spine : Severe tenderness over the Sacroiliac joint: right side / left side Range of motion: Flexion of the lumbar spine <60 degrees Range of motion: Extension of the lumbar spine <20 degrees Gaenslen's Test positive R / L Suman test: positive right side / left side Thigh Thrust Test positive R / L Sacral Thrust Test positive R/ L Assessment and plan: Chronic neck pain secondary to cervical DDD, spondylosis with facet arthropathy without myelopathy Recommendation of KELSEY C6-C7. May need a series fo injections for optimal pain relief. Risks, benefits of procedure discussed and pt verbalized understanding. Admits to anticoagulant use or medical history of diabetes. Protocol for discontinuation/ continuation of medications jaiden procedure discussed. Minimal anesthesia provided, if clinically indicated, consisting of Versed and Fentanyl. All questions answered. I have spent less than 30 minutes on patient care today. Dr Dos Santos was available by phone for the evaluation of this patient. The time was used to review the medical records including relevant urine studies and Prescription history (MAPs), review of the available imaging, evaluation and examination of the patient, coordination of care with the medical staff and if applicable referring physicians, as well as creation of the medical record PQRS Narrative: Smoking Status Former smoker Hx Alcohol Use (MH) Yes: DAILY WINE Home Medications: Ambulatory Orders Cholecalciferol [Vitamin D3] 1,000 unit PO DAILY 11/02/13 Multivitamins, Thera [Multivitamin] 1 tab PO DAILY 11/02/13 Omeprazole [PriLOSEC] 40 mg PO DAILY 11/02/13 Vitamin A 8,000 unit PO DAILY 11/02/13 Zinc 50 mg PO DAILY 02/15/14 Escitalopram [Lexapro] 10 mg PO DAILY 07/14/22 L.acidoph,Paracasei, B.lactis [Probiotic] 1 each PO DAILY 07/14/22 Losartan Potassium [Cozaar] 100 mg PO DAILY 07/14/22 Metoprolol Tartrate [Lopressor] 50 mg PO DAILY 07/14/22 Tirzepatide [Mounjaro] 2.5 mg SQ MO 07/14/22 hydroCHLOROthiazide 25 mg PO DAILY 07/14/22 metFORMIN HCL 750 mg PO BID 07/14/22 Controlled Substance Measures - Controlled Substance Measures Is patient prescribed a controlled substance at discharge?: No
== END ==
LOC: PNWHC3 07:50
PROVIDERS: ATTEND Specialist
DX: M50.323 Other cervical disc degeneration at C6-C7 level (principal); M47.812 Spondylosis without myelopathy or radiculopathy, cervical region; G89.29 Other chronic pain; Z87.891 Personal history of nicotine dependence; Z88.5 Allergy status to narcotic agent; Z91.041 Radiographic dye allergy status
CPT/HCPCS: 99211

== ENCOUNTER → 2023-03-16 | Outpatient (CLI) | payer OTHER ==
[2023-03-16 16:18] LABS: ALT 67 U/L (8-44); AST 49 U/L (13-35); Albumin 4.1 g/dL (3.8-4.9); Albumin/Globulin Ratio 1.41 Ratio (1.60-3.17); Alkaline Phosphatase 123 U/L (41-126); Calcium 10.3 mg/dL (8.7-10.3); Carbon Dioxide 29.3 mmol/L (21.6-31.8); Chloride 99 mmol/L (96-109); Chol/HDL Ratio 3.63 Ratio; Globulin 2.9 g/dL (1.6-3.3); Glucose 160 mg/dL (70-110); LDL Cholesterol,Calculated 109.4 mg/dL (0.0-131.0); Potassium 4.4 mmol/L (3.5-5.5); Sodium 141 mmol/L (135-145); Total Bilirubin 0.4 mg/dL (0.3-1.2); VLDL Calculation 18.76 mg/dL (5.00-40.00)
== END | disposition home or self-care (01) ==
LOC: LABWHC1 10:09
PROVIDERS: ATTEND Nurse Practitioner
DX: Z00.00 Encounter for general adult medical examination without abnormal findings (principal); I10 Essential (primary) hypertension; E11.9 Type 2 diabetes mellitus without complications; K21.9 Gastro-esophageal reflux disease without esophagitis; Z98.890 Other specified postprocedural states
CPT/HCPCS: 36415; 80053; 80061; 82043; 82306; 82570; 82607; 83036

== ENCOUNTER → 2023-06-23 | Outpatient (CLI) | payer OTHER ==
--- NOTE | 2023-06-25 08:11 | MM ---
Reason for Exam: Screening (asymptomatic). Last screening mammogram was performed 12 month(s) ago. Patient History: Menarche at age 14. First Full-Term at age 20. Postmenopausal. Patient has history of breast feeding. 10/07/1995, Benign Core Biopsy on the left side. Risk Values: Tessie 5 year model risk: 1.5%. NCI Lifetime model risk: 6.5%. Prior Study Comparison: 06/06/2022 Bilateral MG screening mammo w CAD, [facility]. 06/10/2022 Right MG 3D work up w/cad RT, [facility]. 12/09/2022 Right MG 3D diag mammo w/cad RT, [facility]. Tissue Density: There are scattered areas of fibroglandular density. Findings: Analyzed By CAD. Right breast: There is no suspicious group of microcalcifications or new suspicious mass. Left breast: There is no suspicious group of microcalcifications or new suspicious mass. There is no suspicious group of microcalcifications or new suspicious mass. Overall Assessment: Negative, BI-RAD 1 Management: Screening Mammogram of both breasts in [address] [facility] will attempt to contact patient to return for supplemental views and ultrasound if indicated. Patient should continue monthly self-breast exams. A clinical breast exam by your physician is recommended on an annual basis. This exam should not preclude additional follow-up of suspicious palpable abnormalities. Note on Tessie scores and lifetime risk: 1. A Tessie score greater than 3% is considered moderate risk. If this is the case, consider specialist referral to assess eligibility for a risk reducing agent. 2. If overall lifetime risk for the development of breast cancer is 20% or higher, the patient may qualify for future screening with alternating mammogram and breast MRI. Electronically signed and approved by: Bertin Mandel DO
== END | disposition home or self-care (01) ==
LOC: RADMAMWWP 13:12
PROVIDERS: ATTEND Internal Medicine Hematology & Oncology
DX: Z12.31 Encounter for screening mammogram for malignant neoplasm of breast (principal); Z78.0 Asymptomatic menopausal state; C83.80 Other non-follicular lymphoma, unspecified site; E66.3 Overweight; I10 Essential (primary) hypertension; Z71.3 Dietary counseling and surveillance
CPT/HCPCS: 77067

== ENCOUNTER → 2023-11-09 | Outpatient (CLI) | payer OTHER ==
--- NOTE | 2023-12-03 09:21 | CT ---
Patient Carlie García ID [id number] Order # EXAMINATION TYPE: CT ChestAbdPelvis w con DATE OF EXAM: 11/20/2023 INDICATION: Follow-up lymphoma for metastases COMPARISON: No comparison available on downtime PACS. CT DLP: 1856 mGycm CONTRAST: 100 mL Isovue-300. Oral contrast. TECHNIQUE: Axial images at 5 mm thick sections. Reconstructed images in the coronal plane. Delayed images through the kidneys. FINDINGS: CT CHEST: Portion of the thyroid visualized is normal. There is a 0.2 cm nodule anterior right upper lung field. Series 5 image 32. There is a 0.8 cm nodule along the pleural margin series 5 image 36. There are a few scattered small lymph nodes within the axillary regions. Enlarged lymphadenopathy is not evident. No enlarged mediastinal or hilar adenopathy is evident. The ascending aorta diameter at the level of the main pulmonary artery is 3.0 cm. The main pulmonary artery diameter at the bifurcation is 1.[address] ABDOMEN: There is an anterior abdominal wall hernia containing mesenteric fat. The proximal transv erse colon is close approximation. No entrapment or obstruction is identified. Liver: Moderate fatty infiltration to the liver. No discrete mass is evident. Spleen: Appears surgically absent Pancreas: Normal Adrenal glands: The adrenal glands are normal. Gallbladder: Surgically absent Kidneys: No masses are evident. No hydronephrosis is present. No cysts are present. Delayed images were obtained through the kidneys, which remain unremarkable. Aorta: Vascular calcification is within the aorta. Inferior vena cava: Normal. CT PELVIS: Loops of bowel within the abdomen and pelvis are normal. There are loops of bowel which are incom pletely distended or lack oral contrast limiting their evaluation. Appendix: Not identified. No dilated tubular structure or inflammatory change is evident. Urinary bladder: Normal. Genitourinary structures: Uterus and adnexa appear normal. Osseous structures: No suspicious lytic or sclerotic lesions. Lymphadenopathy: Few scattered small ax illary nodes are present. No hilar or mediastinal adenopathy is evident. No retrocrural adenopathy en larged by CT criteria evident. There are some scattered small lymph nodes in the periaortic and retro caval regions. There is a 0.7 cm node anterior to the mid inferior vena cava. No suspicious iliac frankie in adenopathy there is a 0.9 cm left inguinal lymph node. Small right inguinal lymph node is present. There is a enlarged 1.0 cm left inguinal lymph node additional adjacent small lymphadenopathy. Series 4 image 127. IMPRESSION: 1. One enlarged left inguinal lymph node present. Additional small scattered lymphadenopathy is prese nt discussed above. 2. Comparison images are available on downtime PACS and no evaluation for interval changes can be per formed. 3. Anterior abdominal wall hernia containing mesenteric fat. 4. Couple of right lung nodules discussed above. Follow-up is recommended.
== END | disposition home or self-care (01) ==
LOC: RADCTMAIN 14:05
PROVIDERS: ATTEND Internal Medicine Hematology & Oncology
DX: C83.80 Other non-follicular lymphoma, unspecified site (principal); E66.3 Overweight; I10 Essential (primary) hypertension; Z71.3 Dietary counseling and surveillance; R59.0 Localized enlarged lymph nodes; K43.9 Ventral hernia without obstruction or gangrene
CPT/HCPCS: 82565; 84520; 71260; 74177; 36415; Q9967

== ENCOUNTER → 2024-03-28 | Outpatient (CLI) | payer OTHER ==
[2024-03-28 15:43] LABS: ALT 148 U/L (8-44); AST 142 U/L (13-35); Albumin 4.1 g/dL (3.8-4.9); Albumin/Globulin Ratio 1.41 Ratio (1.60-3.17); Alkaline Phosphatase 125 U/L (41-126); BUN/Creat Ratio 22.17 Ratio (12.00-20.00); Blood Urea Nitrogen 13.3 mg/dL (9.0-27.0); Calcium 10.6 mg/dL (8.7-10.3); Carbon Dioxide 31.2 mmol/L (21.6-31.8); Chloride 98 mmol/L (96-109); Chol/HDL Ratio 3.35 Ratio; Globulin 2.9 g/dL (1.6-3.3); Glucose 171 mg/dL (70-110); LDL Cholesterol,Calculated 108.1 mg/dL (0.0-131.0); Potassium 4.3 mmol/L (3.5-5.5); Sodium 140 mmol/L (135-145); Total Bilirubin 0.4 mg/dL (0.3-1.2)
[2024-03-28 19:02] LABS: Microalbumin Creatinine Ratio <7 mg/g Cr (0-30)
== END | disposition home or self-care (01) ==
LOC: LABWHC1 10:10
PROVIDERS: ATTEND Family Medicine
DX: E11.9 Type 2 diabetes mellitus without complications (principal)
CPT/HCPCS: 36415; 80053; 80061; 82043; 82570

== ENCOUNTER → 2024-06-23 | Outpatient (CLI) | payer OTHER ==
--- NOTE | 2024-06-23 10:48 | MM ---
Reason for Exam: Screening (asymptomatic). Last screening mammogram was performed 12 month(s) ago. Patient History: Menarche at age 14. First Full-Term at age 20. Postmenopausal. Patient has history of breast feeding. 10/07/1995, Benign Core Biopsy on the left side. Niece had breast cancer, age 50. Risk Values: Tessie 5 year model risk: 1.6%. NCI Lifetime model risk: 6.3%. Prior Study Comparison: 06/10/2022 Right MG 3D work up w/cad RT, [facility]. 12/09/2022 Right MG 3D diag mammo w/cad RT, [facility]. 06/23/2023 Bilateral MG screening mammo w CAD, [facility]. Tissue Density: There are scattered areas of fibroglandular density. Findings: Analyzed By CAD. Stable 8 mm circumscribed mass in the subareolar region left breast from several prior mammograms. There is no suspicious new group of microcalcifications or new suspicious mass in either breast. Overall Assessment: Benign, BI-RAD 2 Management: Screening Mammogram of both breasts in 1 year. . Patient should continue monthly self-breast exams. A clinical breast exam by your physician is recommended on an annual basis. This exam should not preclude additional follow-up of suspicious palpable abnormalities. Note on Tessie scores and lifetime risk: 1. A Tessie score greater than 3% is considered moderate risk. If this is the case, consider specialist referral to assess eligibility for a risk reducing agent. 2. If overall lifetime risk for the development of breast cancer is 20% or higher, the patient may qualify for future screening with alternating mammogram and breast MRI. [facility], , 06/23/2024 10:45 AM. Electronically signed and approved by: Mahad Morse M.D.
== END | disposition home or self-care (01) ==
LOC: RADMAMWWP 10:10
PROVIDERS: ATTEND Internal Medicine Hematology & Oncology
DX: Z12.31 Encounter for screening mammogram for malignant neoplasm of breast (principal); I10 Essential (primary) hypertension; E66.3 Overweight; C83.80 Other non-follicular lymphoma, unspecified site; Z71.3 Dietary counseling and surveillance; Z78.0 Asymptomatic menopausal state; R92.323 Mammographic fibroglandular density, bilateral breasts
CPT/HCPCS: 77063; 77067

== ENCOUNTER → 2024-08-17 | Outpatient (CLI) | payer MEDICARE ==
--- NOTE | 2024-08-17 15:12 | XR ---
EXAMINATION TYPE: XR Hip Complete LT DATE OF EXAM: 08/17/2024 2:43 PM COMPARISON: None CLINICAL INDICATION: Female, 64 years old with history of M25.552 Left hip pain; [facility], pain TECHNIQUE: XR Hip Complete LT; Frontal and lateral views FINDINGS: No evidence for acute process, joint dislocation or significant soft tissue swelling. Osteo phyte formation of the superior acetabulum of the hip. There is mild joint space narrowing. IMPRESSION: 1. No evidence for acute process. 2. Mild hip osteoarthrosis. [facility], , 08/17/2024 3:10 PM
== END | disposition home or self-care (01) ==
LOC: RADXRMAIN 14:29
PROVIDERS: ATTEND Family Medicine
DX: M16.12 Unilateral primary osteoarthritis, left hip (principal)
CPT/HCPCS: 73502

== ENCOUNTER → 2024-09-28 | Outpatient (CLI) | payer MEDICARE, OTHER ==
--- NOTE | 2024-09-29 15:27 | BD ---
EXAMINATION TYPE: Axial Bone Density DATE OF EXAM: 09/28/2024 CLINICAL HISTORY: 64 years old Female. ICD-10 CODE: N95.9 UNSPECIFIED MENOPAUSAL AND PERIMENOPAUSAL DI , Additional History: Height: 62.5 Weight: 188 FRAX RISK QUESTIONS: Alcohol (3 or more units per day): yes Family History (Parent hip fracture): yes History of Fracture in Adulthood: no Secondary Osteoporosis: yes RISK FACTORS HISTORY OF: Surgery to Spine/Hip(right/left)/Wrist (right/left): no MEDICATIONS: Thyroid Medications: no Osteoporosis Medications: no EXAM MEASUREMENTS: Bone mineral densitometry was performed using the [employer] System. Bone mineral density as measured about the Lumbar spine is: ----- L1-L4(G/cm2): 1.449 T Score Values are as follows: ----- L1: 1.9 ----- L2: 1.9 ----- L3: 2.7 ----- L4: 2.1 ----- L1-L4: 2.2 Z Score Values are as follows: ----- L1: 2.8 ----- L2: 2.9 ----- L3: 3.6 ----- L4: 3.0 ----- L1-L4: 3.2 Bone mineral density baseline Bone mineral density about the R hip (g/cm2): 1.215 Bone mineral density about the L hip (g/cm2): 1.181 T Score values are as follows: -----R Neck: -0.3 -----L Neck: 0.5 -----R Total: 1.6 -----L Total: 1.4 Z Score values are as follows: -----R Neck: 0.8 -----L Neck: 1.5 -----R Total: 2.4 -----L Total: 2.1 Bone mineral density baseline FRAX%s: The graph provided illustrates a 12.8% chance for a major osteoporotic fx and a 0.6% chance f or the hips probability for fx in 10 years time. IMPRESSION: Normal (Values between +1 and -1 indicate normal bone mass). Consider repeating this study in 5 year s or sooner if there is some new clinical indication. NOTE: T-SCORE=SD OF THE YOUNG ADULT MEAN. [facility], , 09/29/2024 3:25 PM
== END | disposition home or self-care (01) ==
LOC: RADBDWWP 15:51
PROVIDERS: ATTEND Family Medicine
DX: Z00.00 Encounter for general adult medical examination without abnormal findings (principal); N95.9 Unspecified menopausal and perimenopausal disorder; E66.812 Obesity, class 2; E66.01 Morbid (severe) obesity due to excess calories; Z68.36 Body mass index [BMI] 36.0-36.9, adult; Z98.890 Other specified postprocedural states; J45.20 Mild intermittent asthma, uncomplicated
CPT/HCPCS: 77080